=== PATIENT | female | born 1970 ===

== ENCOUNTER 2018-09-16 12:16 | Emergency (ER) | payer SELFPAY ==
[2018-09-16 12:16] VITALS: BMI 29.9
[2018-09-16 12:25] VITALS: TEMP 98.6
--- NOTE | 2018-09-16 13:30 | C.PDOC ---
History Of Present Illness 48 y/o female presents to ER with complaints of pain and swelling to her left small toe for the past 3 weeks after banging it into a piece of furniture. Patient is taking Tylenol for pain with no relief. Denies any weakness or numbness. Time Seen by Provider: 09/16/18 12:47 Chief Complaint (Nursing): Lower Extremity Problem/Injury History Per: Patient History/Exam Limitations: no limitations Onset/Duration Of Symptoms: Days Current Symptoms Are (Timing): Still Present Past Medical History Reviewed: Historical Data, Nursing Documentation, Vital Signs Vital Signs: Last Vital Signs Temp 98.6 F 09/16/18 12:18 Pulse 83 09/16/18 12:18 Resp 18 09/16/18 12:18 BP 109/71 09/16/18 12:18 Pulse Ox 100 09/16/18 12:18 - Medical History PMH: Arthritis Family History: States: No Known Family Hx - Social History Hx Tobacco Use: No Hx Alcohol Use: No Hx Substance Use: No - Immunization History Hx Tetanus Toxoid Vaccination: No Hx Influenza Vaccination: Yes Hx Pneumococcal Vaccination: No Review Of Systems Constitutional: Negative for: Fever, Chills Cardiovascular: Negative for: Chest Pain Respiratory: Negative for: Shortness of Breath Gastrointestinal: Negative for: Nausea, Vomiting Musculoskeletal: Positive for: Foot Pain (L big toe). Negative for: Leg Pain Neurological: Negative for: Weakness, Numbness Physical Exam - Physical Exam Appears: Non-toxic, No Acute Distress Skin: Warm, Dry Head: Atraumatic, Normacephalic Eye(s): bilateral: Normal Inspection Oral Mucosa: Moist Extremity: Tenderness (to L small toe; no metatarsal tenderness), Capillary Refill (less than 2 seconds), No Deformity, Swelling (of L small toe) Pulses: Left Dorsalis Pedis: Normal, Right Dorsalis Pedis: Normal Neurological/Psych: Oriented x3, Normal Speech, Normal Motor, Normal Sensation Gait: Steady ED Course And Treatment O2 Sat by Pulse Oximetry: 100 (RA) Pulse Ox Interpretation: Normal Medical Decision Making Medical Decision Making: Impression: Left Foot Pain Plan: --Ibuprofen taye tape toe and ortho shoe Disposition Counseled Patient/Family Regarding: Diagnosis, Need For Followup, Rx Given - Disposition Referrals: [facility] [Outside] Podiatry Clinic [Outside] Disposition: HOME/ ROUTINE Disposition Time: 13:54 Condition: GOOD Additional Instructions: Mantenga pegado el dedo del pie emily y del cuarto dedo del pie. Las compresas se pueden comprimir hasta el dedo pequeo del pie emily varias veces al da sobre un jennifer para ayudar a reducir la hinchazn. Use zapato de suela orto dura para menos molestias. Seguimiento en la clnica de podologa, ya sea en [place] o en [place]; Llame al nmero de la clnica y pida everardo jonah de podologa. \ Keep little left toe and 4th toe taye taped. COld compresses to left little toe several times a day over a cloth to help reduce swelling. Wear ortho hard soled shoe for less discomfort. Follow up in podiatry clinic- either in [place] or at [facility]; call clinic number and ask to make podiatry appointment. Prescriptions: Ibuprofen [Motrin] 600 mg PO TID #30 tab Instructions: Toe Injury (DC) Forms: [employer] (Palauan), Gen Discharge Inst Monegasque, [employer] (Monegasque) Print Language: CZECH - Clinical Impression Clinical Impression: Injury of left toe - PA / [employer] / Resident Statement MD/DO has reviewed & agrees with the documentation as recorded. - Scribe Statement The provider has reviewed the documentation as recorded by the Scribe Tami Hodge All medical record entries made by the Scribe were at my direction and personally dictated by me. I have reviewed the chart and agree that the record accurately reflects my personal performance of the history, physical exam, medical decision making, and the department course for this patient. I have also personally directed, reviewed, and agree with the discharge instructions and disposition.
[2018-09-16 14:09] VITALS: BP 111/68; PULSE 81; RESP 16
[2018-09-20 02:44] VITALS: O2SAT 100
== END 2018-09-16 14:08 | disposition home or self-care (01) ==
LOC: C.ER 12:16
DX: S99.922A Unspecified injury of left foot, initial encounter (principal); W22.03XA Walked into furniture, initial encounter; Y92.9 Unspecified place or not applicable